=== PATIENT | male | born 1985 | race Caucasian/White ===

== ENCOUNTER 2018-04-01 00:04 | Inpatient (IN) | payer OTHER ==
[~2018-04-01] VITALS: Ht 152.4 cm; Wt 121.4 kg
[2018-04-01 00:05] VITALS: BP 152/95
[2018-04-01 00:44] LABS: HEMATOCRIT 46.8 % (42.0-52.0); HEMOGLOBIN 15.9 gm/dL (14.0-18.0); MCH 31.4 pg (26.0-34.0); MCHC 34.1 g/dL (28.0-37.0); MPV 7.8 fl. (7.2-11.1); NUCLEATED RBCS 0 /100WBC; PLATELET COUNT* 252 thou/uL (150-400); RBC 5.08 mil/uL (4.50-6.00); RDW-CV 14.3 % (10.5-14.5); WBC 11.8 thou/uL (4.0-11.0)
[2018-04-01 00:55] LABS: ANION GAP 10 mmol/L (7-16); BUN 31 mg/dL (7-18); CALCIUM 8.8 mg/dL (8.5-10.1); CHLORIDE 99 mmol/L (98-107); CO2 26 mmol/L (21-32); CREATININE 3.1 mg/dL (0.6-1.3); GLUCOSE 159 mg/dL (70-99); POTASSIUM 5.6 mmol/L (3.5-5.1); SODIUM 135 mmol/L (136-145)
[2018-04-01 00:57] LABS: APTT 25.3 Seconds (25.0-31.3); INR 1.1; PROTIME 10.7 Seconds (9.20-11.50)
[2018-04-01 01:06] LABS: ALBUMIN 4.1 g/dL (3.4-5.0); ALKALINE PHOSPHATASE 80 U/L (46-116); NT-PRO BRAIN NAT PEPTIDE 55 pg/mL (<300); SGOT 49 U/L (15-37); SGPT 108 U/L (30-65); TOTAL BILIRUBIN 0.5 mg/dL (<0.1-1.0); TROPONIN-I LEVEL <0.06 ng/mL (<0.06)
[2018-04-01 01:15] LABS: URINE BLOOD 1+ (Negative); URINE CLARITY CLEAR; URINE COLOR YELLOW; URINE GLUCOSE-RANDOM NEGATIVE (Negative); URINE KETONES 2+ (Negative); URINE LEUKOCYTES-REFLEX 1+ (Negative); URINE NITRITE-REFLEX NEGATIVE (Negative); URINE PROTEIN 1+ (Negative); URINE SPECIFIC GRAVITY 1.025 (1.005-1.030); URINE UROBILINOGEN 0.2 E.U./dl (0.2-1.0)
[2018-04-01 01:16] LABS: URINE BILIRUBIN 1+ (Negative)
[2018-04-01 01:17] LABS: ICTOTEST (BILI CONFIRMATORY) Negative (Negative)
[2018-04-01] MEDS ORDERED: CIPROFLOXACIN500 M1 PO (01:25)
[2018-04-01] MEDS ORDERED: FLAGYL500 MG PO (01:25)
[2018-04-01] MEDS ORDERED: NORCO 5-325 TA1 EACH PO (01:25)
[2018-04-01 01:36] LABS: BACTERIA-REFLEX >30 Many /HPF (None Seen); COARSE GRANULAR CASTS 0-3 Few /LPF (None Seen); FINE GRANULAR CASTS 4-10 Moderate /LPF (None Seen); HYALINE CASTS 4-10 Moderate /LPF (None Seen); MUCUS >6 Heavy strn/LPF (None Seen); SQUAMOUS 0-3 Few /LPF (0-3); TRANSITIONAL EPITHEL CELL 0-3 Few /LPF (None Seen)
[2018-04-01 01:37] LABS: AMORPHOUS URATES Few /LPF (None Seen)
[2018-04-01 01:43] LABS: ABSOLUTE BASOPHILS 0.1 thou/uL (0.0-0.2); ABSOLUTE LYMPHOCYTES 1.8 thou/uL (0.8-5.3); ABSOLUTE MONOCYTES 0.6 thou/uL (0.0-1.2); ABSOLUTE NEUTROPHILS 9.3 thou/uL (1.6-8.1); PLATELET ESTIMATE ADEQUATE
[2018-04-01 02:15] VITALS: BP 121/62; BP 140/74
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
[2018-04-01 08:00] VITALS: BP 111/57
--- NOTE | 2018-04-01 10:00 | NUR ---
ASSUMED CARE OF PT AFTER REPORT. PT IS ALERT AND ORIENTED X4. VITAL SIGNS TAKEN AND RECORDED. PHYSICAL ASSESSMENT COMPLETED AND CHARTED. SINUS RHYTHM ON SAFETY SUPERVISOR. WITH IVF INFUSING WELL AT 100 CC/HR. COMPLAINS OF BODY WEAKNESS. UP WITH STANDBY ASSIST. DENIES NEED AT THIS TIME. CALL LIGHT WITHIN REACH. WILL CONTINUE TO MONITOR PT.
--- NOTE | 2018-04-01 11:18 | NUR ---
CM SPOKE TO THE PATIENT TO DISCUSS HOME SITUATION, DISCHARGE PLANNING, AND TO INFORM OF THE ROLE OF CM. PATIENT ALERT, ORIENTED, INDEPENDENT AND ACTIVE. 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 PATIENT USES 0 DME. PATIENT HAS NO HX OF HH. PATIENT DOES NOT ANTICIPATE ANY DISCHARGE PLANNING NEEDS. CM WILL REMAIN AVAILABLE TO ASSIST AND FOLLOW NEEDED.
[2018-04-01 11:42] VITALS: BP 128/56
[2018-04-01 13:55] LABS: ALBUMIN 3.3 g/dL (3.4-5.0); CALCIUM 8.3 mg/dL (8.5-10.1); POTASSIUM 3.7 mmol/L (3.5-5.1); TOTAL BILIRUBIN 0.5 mg/dL (<0.1-1.0); TOTAL PROTEIN 6.8 g/dL (6.4-8.2)
[2018-04-01 13:56] LABS: CREATININE 1.4 mg/dL (0.6-1.3)
[2018-04-01 15:58] VITALS: BP 147/83
--- NOTE | 2018-04-01 18:44 | NUR ---
PT'S IVF INCREASED TO 175 CC/HR. NO COMPLAINTS OF PAIN OR DISCOMFORT. SR ON MEDICAL SONOGRAPHER. PT CAN MOVE INDEPENDENTLY IN ROOM. CALL LIGHT WITHIN REACH. WILL CONTINUE TO MONITOR PT.
[2018-04-01 20:00] VITALS: BP 127/68
[2018-04-02 00:35] VITALS: BP 132/80
[2018-04-02 04:09] VITALS: BP 114/63
--- NOTE | 2018-04-02 06:37 | NUR ---
ASSUMED PT CARE AT 19:15 REPORT RECEIVED FROM NURSE. PT IS ALERT AWAKE, ORIENTED X 4. VITAL SIGNS WITHIN NORMAL LIMIT. SINUS RYTHM ON THE MONITOR. GETTING NORMAL SALINE INFUSING AT 175CC/HR. IV LINE IS PATENT. O2 SATURATION 95% ON RA. SLEPT WELL MOST DURING THE NIGHT.
[2018-04-02 08:00] VITALS: BP 124/72
--- NOTE | 2018-04-02 09:16 | NUR ---
PT STATES HE WANTS TO LEAVE HOSPITAL EVEN IF IT IS AMA. INFORMED PT TO ALLOW THIS NURSE TO CONTACT PHYSICIAN TO SEE IF THEY WILL DISCHARE PATIENT RATHER THAN HIM LEAVING AMA. PT AGREEABLE TO SEE WHAT PHYSICIAN SAYS.
--- NOTE | 2018-04-02 11:16 | EKG ---
[place] [address] ELECTROCARDIOGRAM REPORT Name: HANANE GUERRERO Room: [address] IN [facility]#: [id number] Admission: 04/01/18 Attend Phys: Trung Elder MD Discharge: Date of : 83 Report #: [id number] THIS REPORT FOR: //name// [facility] ED Test Date: 2018-04-01 Test Time: 00:09:44 Pat Name: BANDAR ANTUNEZ Department: Room: Gender: Supervising Appraiser: DEAN Estrada : 1985 Requested By: Shashi Lee Order Number: [id number] MD: Michael Bradley Measurements Intervals [place] Rate: 75 P: 37 IL: 164 QRS: 34 QRSD: 94 T: 18 QT: 415 QTc: 464 Interpretive Statements Sinus rhythm Probable left atrial enlargement ST elev, probable normal early repol pattern No previous ECG available for comparison Electronically Signed On 04-02-2018 11:16:29 CDT by Michael Bradley [email or web address] <ELECTRONICALLY SIGNED> By: Michael Bradley MD, [facility] 04/02/18 1116 0009 Michael Bradley MD, FAC /EPI
[2018-04-02 11:51] VITALS: BP 151/80
[2018-04-02 12:36] LABS: ALBUMIN 3.7 g/dL (3.4-5.0); POTASSIUM 4.1 mmol/L (3.5-5.1); TOTAL BILIRUBIN 0.4 mg/dL (<0.1-1.0); TOTAL PROTEIN 7.5 g/dL (6.4-8.2)
--- NOTE | 2018-04-02 12:40 | NUR ---
ASSUMED PT CARE AFTER REPORT AT 0715. PT IS ALERT AND ORIENTED X4. VITAL SIGNS TAKEM AND RECORDED. PHYSICAL ASSESSMENT COMPLETED AND CHARTED. PT ON ROOM AIR. IVF AT 175CC/HR INFUSING WELL. REFERRED AND SEEN BY NEPHRO WITH NEW ORDERS. AT 1055 PT COMPLAINED OF PRESSURE IN HIS CHEST AND SHORTNESS OF BREATH. FEELS LIKE DROWNING. HOOKED TO O2 VIA NASAL CANNULA @ 2LPM. CRACKLES HEARD AT THE BASE OF THE LUNGS.STOPPED IVF TEMPORARILY. EKG AND XRAY DONE REVEALS NORMAL RESULTS. LABS WITHDRAWN. AWAITING LAB RESULTS. 40MG FUROSEMIDE IV GIVEN. CHECKED PT AT 1230 AND CLAIMED FEELING BETTER. CALL LIGHT IN REACH. WILL CONTINUE TO MONITOR PT.
[2018-04-02 16:17] VITALS: BP 148/89
--- NOTE | 2018-04-02 17:10 | EKG ---
[place] [address] ELECTROCARDIOGRAM REPORT Name: AASHISHBIRDHANANE Room: [address] ADM IN [facility].R.#: [id number] Admission: 04/01/18 Attend Phys: Trung Elder MD Discharge: Date of : 83 Report #: [id number] THIS REPORT FOR: //name// [facility] Test Date: 2018-04-02 Test Time: 11:12:19 Pat Name: HANANE GUERRERO Department: Room: [address] Gender: M Commercial Center Manager: TONNY : 1985 Requested By: Fritz Geller Order Number: [id number] MD: Dae Marino Measurements Intervals [place] Rate: 54 P: 16 MS: 180 QRS: 50 QRSD: 88 T: 14 QT: 428 QTc: 406 Interpretive Statements Sinus rhythm No previous ECG available for comparison Electronically Signed On 04-02-2018 17:09:57 CDT by Dae Marino [email or web address] <ELECTRONICALLY SIGNED> By: Dae Marino MD, [facility] 04/02/18 1709 1112 11 Dae Marino MD, FACC /EPI
--- NOTE | 2018-04-02 19:30 | NUR ---
RELAYED LAB RESULTS TO DR. RAY THRU PHONE WITH NO NEW ORDERS. DENIED PAINS OR DISCOMFORT. SR ON TELE. CALL LIGHT WITHIN REACH. WILL CONTINUE TO MONITOR PT.
[2018-04-02 20:00] VITALS: BP 132/65
[2018-04-03] VITALS: BP 128/78
--- NOTE | 2018-04-03 03:02 | NUR ---
ASSUMED PT CARE AT 19:15. PT IS ALERT AWAKE, ORIENTED X 4. SINUS RYTHM ON THE CLINIC CLERK. ASSESSMENT PERFORMED. REFER TO CHARTING. IV ANTIBIOTIC ADMINISTERED ORDERED, PT STATES THAT HE IS READY TO GO HOME IN THE AM. WILL MONITOR LAB IN THE MORNING. SLEEP PROMOTED. PT IS CURRENTLY SLPEEPING IN BED. LIGHT OFF, ROOM QUIET. KARLA CONTINUE TO MONITOR
[2018-04-03 04:00] VITALS: BP 135/75
[2018-04-03 04:38] LABS: HEMATOCRIT 45.2 % (42.0-52.0); MCHC 33.3 g/dL (28.0-37.0); MCV 93.2 fL (80.0-100.0); MPV 7.9 fl. (7.2-11.1); RBC 4.85 mil/uL (4.50-6.00)
[2018-04-03 04:51] LABS: ALBUMIN 3.7 g/dL (3.4-5.0); CALCIUM 9.1 mg/dL (8.5-10.1); CREATININE 0.9 mg/dL (0.6-1.3); POTASSIUM 4.3 mmol/L (3.5-5.1); TOTAL BILIRUBIN 0.6 mg/dL (<0.1-1.0); TOTAL PROTEIN 7.3 g/dL (6.4-8.2)
[2018-04-03 07:30] VITALS: BP 110/86
[2018-04-03] MEDS ORDERED: KEFLEX250 M1 PO (09:52)
[2018-04-03 09:53] VITALS: BP 110/86
--- NOTE | 2018-04-05 09:53 | CON ---
[address] [address] CONSULTATION Name: HANANE GUERRERO Room: [address] IN M.R.#: [id number] Admission: 04/01/18 Attend Phys: Trung Elder MD Discharge: 04/03/18 Date of : 83 Report #: [id number] THIS REPORT FOR: //name// CC: FAM physician/PCP Trung Elder DATE OF SERVICE: 04/02/2018 REQUESTING PHYSICIAN: Fritz Geller MD REASON FOR CONSULTATION: Acute kidney injury. HISTORY OF PRESENT ILLNESS: The patient is a very pleasant 33-year-old white male with a past medical history significant for heatstroke that he experienced several years ago. He presents to the hospital with complaints of nausea, vomiting, not feeling well on Thursday evening. 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 On Thursday, it was very hot. He was trying to drink a lot of water, but he states that at some point, he started having vomiting and could not keep anything down. He waited, he came home and overnight, he became worse ____ more nausea, more vomiting, called 911 and was brought to the Emergency Room. Here, he was diagnosed with a heatstroke. His lab work revealed a creatinine of 3.1, potassium was 5.6. He was admitted with diagnosis of heatstroke, started on IV fluids. Several hours later the same day, his creatinine came down to 1.4. I do not have any lab work from today. This morning, he developed some chest pressure and difficulty breathing, so IV fluids were stopped. PAST MEDICAL HISTORY: Significant for heatstroke that happened during a similar situation several years ago and he told me that he lost some of the kidney functions that time, so assuming that he does have chronic kidney disease, likely stage 2 or 3. PAST MEDICAL HISTORY: No history of hypertension or diabetes. He is overweight, not taking any medications at home. SOCIAL HISTORY: No tobacco or alcohol abuse. FAMILY HISTORY: Noncontributory. REVIEW OF SYSTEMS: Positive for the symptoms as I mentioned earlier. PHYSICAL EXAMINATION: GENERAL: He is awake, alert, oriented. VITAL SIGNS: Blood pressure is 114/63, heart rate is 53, afebrile. HEENT: Pupils are round. NECK: [place] [address] CONSULTATION Name: HANANE GUERRERO Room: [address]#: [id number] Admission: 04/01/18 Attend Phys: Trung Elder MD Discharge: 04/03/18 Date of : 83 Report #: [id number] LUNGS: Decreased breath sounds at the bases and some coarse breath sounds. CARDIOVASCULAR: Regular rate. ABDOMEN: Obese. LOWER EXTREMITIES: No edema. LABORATORY REPORT: As I mentioned earlier. ASSESSMENT: A 33-year-old man with acute kidney injury due to heatstroke. His creatinine has improved yesterday. Did not have any blood work from today. He is with some evidence of fluid overload now. IV fluids stopped. Chest x-ray ordered. I am going to give him one dose of Lasix IV push. I am also ordering stat blood work to check his chemistries today. Thank you very much for asking my opinion on acute kidney injury on this patient. <ELECTRONICALLY SIGNED> By: William Shelby MD 04/05/18 0953 1140 [id number] Shelby MD /nt
== END 2018-04-03 11:20 | disposition home or self-care (01) | DRG 922 ==
LOC: M.ERS 00:04 → M.2W 01:28 → M.TBA-ER 01:28 → M.2W 02:13
PROVIDERS: Family Medicine; Internal Medicine; Internal Medicine Nephrology; ADMIT Internal Medicine
DX: T67.5XXA Heat exhaustion, unspecified, initial encounter (principal); N17.0 Acute kidney failure with tubular necrosis; M62.82 Rhabdomyolysis; N39.0 Urinary tract infection, site not specified; T67.0XXA Heatstroke and sunstroke, initial encounter; E86.0 Dehydration; N18.9 Chronic kidney disease, unspecified; I12.9 Hypertensive chronic kidney disease with stage 1 through stage 4 chronic kidney disease, or unspecified chronic kidney disease; E87.5 Hyperkalemia; N18.2 Chronic kidney disease, stage 2 (mild); X58.XXXA Exposure to other specified factors, initial encounter; Y93.89 Activity, other specified; Z82.49 Family history of ischemic heart disease and other diseases of the circulatory system; Z83.6 Family history of other diseases of the respiratory system; Y92.89 Other specified places as the place of occurrence of the external cause; Y99.8 Other external cause status